=== PATIENT | female | born 1980 | race Hispanic/Latino ===

== ENCOUNTER → 2018-04-06 | Day surgery (SDC) | payer OTHER ==
--- NOTE | 2018-04-05 18:27 | History & Physical Pre-Op ---
General Information and HPI History of Present Illness: The patient is a 37-year-old 2 para 2 with chronic persistent LGSIL Pap smears and negative workup for colposcopy. She presents today for cryotherapy. Allergies/Medications Allergies: Coded Allergies: MDX - Radiological Contrast Media, (Radiological Contrast Media, Iodine) ( Severe, Difficulty Breathing 04/05/18) Home Med list Ibuprofen 800 MG TABLET 800 MG PO Q6P PRN PAIN SCALE 4-6 PNV95/FERROUS FUMARATE/FA ( Formula Tablet) 28 MG IRON-800 MCG TABLET 1 TAB PO DAILY VITAMINS (Reported) Past History Medical History Neurological: NONE EENT: NONE Cardiovascular: NONE Respiratory: NONE Gastrointestinal: colitis, Crohn's disease Hepatic: NONE Renal: NONE Musculoskeletal: NONE Psychiatric: NONE Endocrine: NONE Blood Disorders: NONE Cancer(s): NONE FUNCTIONAL SUPPORT ANALYST/Reproductive: NONE Surgical History Pertinent Surgical History: Review of Systems Review of Systems Constitutional: Reports: no symptoms. EENTM: Reports: no symptoms. Cardiovascular: Reports: no symptoms. Respiratory: Reports: no symptoms. GI: Reports: no symptoms. Genitourinary: Reports: no symptoms. Musculoskeletal: Reports: no symptoms. Skin: Reports: no symptoms. Neurological/Psychological: Reports: no symptoms. Hematologic/Endocrine: Reports: no symptoms. Immunologic/Allergic: Reports: no symptoms. All Other Systems: Reviewed and Negative Exam & Diagnostic Data Last 24 Hrs of Vital Signs/I&O Intake & Output 04/05 1600 04/05 0800 04/05 0000 Intake Total Output Total Balance Patient 185 lb Weight Physical Exam: HEENT: Normocephalic atraumatic Chest: Clear to auscultation bilaterally Cardiovascular: Normal S1, S2 Abdomen: Soft, nontender nondistended Pelvic: Deferred to the OR Extremities: No clubbing cyanosis or edema Neurologic: Nonfocal Assessment/Plan Assessment/Plan: Persistent LGSIL Pap smear Cryotherapy As Ranked By This Provider Problem List: 1. LGSIL on Pap smear of cervix
[~2018-04-06] VITALS: Ht 167.6 cm; Wt 83.9 kg
[~2018-04-06] MED LIST: IBUPROFEN800 MG PO; PERCOCET 325 MG1 TA2 PO; PRENATAL1 TA2 PO
--- NOTE | 2018-04-06 12:38 | Operative Report ---
Operative/Inv Procedure Report Surgery Date: 04/06/18 Name of Procedure: Cryotherapy of cervix Pre-Operative Diagnosis: LGSIL, vaginal stricture Post-Operative Diagnosis: Same Estimated Blood Loss: scant Surgeon/Quarry Supervisor: Edward Zeng MD Anesthesia: local monitored anesthesi, moderate sedation Operative/Procedure Note Note: Patient was brought to the operating room and placed on the OR table in the dorsal supine position. She was given adequate sedation repositioned in modified dorsal lithotomy. She was prepped and draped in usual sterile fashion. Examination under anesthesia revealed a moderate to severe vaginal stricture making it difficult to reach her cervix. A bivalve speculum was placed into the vagina with an Allis clamp these the cervix was brought forward. It was injected with 1% lidocaine with epinephrine 2 ml 1. An endocervical curettage was performed and sent to pathology. At this point the cry of 2 was placed on the cervix and cryotherapy was begun at 3 minutes 11 minute break and another 3 minutes turn of cryotherapy. At the end of the procedure the instrument was removed she has small amount of bleeding from the vaginal stricture but the instruments removed the patient was awakened and sent to recovery in good condition. All counts were correct at the end of the procedure
== END ==
LOC: STS 03:15
DX: R87.612 Low grade squamous intraepithelial lesion on cytologic smear of cervix (LGSIL) (principal); N89.5 Stricture and atresia of vagina; K50.10 Crohn's disease of large intestine without complications
CPT/HCPCS: 81025; 88305; J2250; J2405